=== PATIENT | female | born 1965 | race African-American/Black ===

== ENCOUNTER → 2016-06-17 | Outpatient (CLI) | payer BC ==
[~2016-06-17] MED LIST: AMBIEN10 MG PO; CARAFATE1 G PO; CELEXA20 MG PO; CIPRO250 MG PO; DITROPAN PO; DITROPAN-XL5 M1 DOB; HYDROCODONE-APA1 T41 PO; LORTAB 7.51 TAB PO; MEDI-MECLIZINE25 M1 PO; PATIENT'S PHARMACY; PRILOSEC40 MG PO; PYRIDIUM PO; TOPAMAX25 MG DOB; TYLENOL #3 PO; VITAMIN C500 M1 PO; VITAMIN D31000 UNI1 PO; ZOLPIDEM TARTRA10 MG PO
--- NOTE | ~2016-06-17 | US85 ---
[facility] A Service of [facility] RADIOLOGY TEXT RESULTS PATIENT: ABIGAIL WATKINS LOCATION: [place] : 61 UNIT #: [id number] AGE: [address]: Celeste Long APRN SEX: F ORDER DR: [id number] [facility] [address] [place], [place] [address] [id number] O MR#: [id number] Acc #: [id number] NAME: ABIGAIL WATKINS : 1965 SEX: F STUDY DATE/TIME: 06/17/2016 17:50 UNIT: US ROOM: STUDY DESCRIPTION: [facility] Attending Physician: Celeste Long A.P.R.N. Ordering Physician: Celeste Long A.P.R.N. Primary Care Physician: Celeste Long A.P.R.N. MEDICAL IMAGING REPORT This report is preliminary unless electronic signature is present COULD NOT FIND ORDER EXAM Color Doppler ultrasound examination of the left lower extremity. HISTORY Pain, swelling and redness for the past 3 days. TECHNIQUE Ultrasound evaluation was performed with del cid-scale, color-flow and Doppler spectral waveform analysis. FINDINGS The examination is negative. There is no evidence of left lower extremity deep venous thrombus from the groin to the lower calf. Visualized greater saphenous vein is also patent. IMPRESSION Negative examination. No evidence of left lower extremity DVT. Dictated by... Raul Gilmore M.D. THIS IS AN ELECTRONICALLY VERIFIED REPORT Raul Gilmore M.D. at 06/21/2016 3:10 PM OLIVIER/keira TD: 06/18/2016 18:31 JOB #: [id number] MEDICAL IMAGING REPORT [facility] A Service [facility] RADIOLOGY TEXT RESULTS PATIENT: ABIGAIL WATKINS LOCATION: [facility] : 61 UNIT #: [id number] AGE: [address]: Celeste Long APRN SEX: F ORDER DR: Page 1 of 1 COPY
== END | disposition home or self-care (01) ==
LOC: CGUS 16:00
DX: M79.605 Pain in left leg (principal); M79.89 Other specified soft tissue disorders
CPT/HCPCS: 93971